=== PATIENT | female | born 1960 | race Caucasian/White ===

== ENCOUNTER → 2021-01-11 | Day surgery (SDC) | payer OTHER ==
[~2021-01-11] VITALS: Ht 157.5 cm; Wt 52.2 kg
[~2021-01-11] MED LIST: ABILIFY10 MG PO; ALENDRONATE SOD70 MG PO; BREO ELLIPTA 11 EACH PO; DESVENLAFAXINE50 M3 PO; DICLOFENAC SODI75 MG PO; DOXYCYCLINE HY100 MG PO; DOXYCYCLINE MO100 MG PO; FLONASE ALLER15.8 ML; FLUTICASONE PRO16 GM; LISINOPRIL-HCT1 EACH PO; LOPRESSOR25 MG PO; MAG-OXIDE 400M400 MG PO; NORCO 5-325 TA1 EACH PO; PERCOCET 5-3251 EACH PO; ULTRAM50 MG PO; VENTOLIN HFA IN18 GM INH; VITAMIN D31000 UNIT PO; ZOFRAN8 MG PO; ZYRTEC10 MG PO
== END | disposition home or self-care (01) ==
LOC: FAS 10:30
DX: D12.2 Benign neoplasm of ascending colon (principal); D12.0 Benign neoplasm of cecum; F41.9 Anxiety disorder, unspecified; F32.9 Major depressive disorder, single episode, unspecified; J44.9 Chronic obstructive pulmonary disease, unspecified; F17.210 Nicotine dependence, cigarettes, uncomplicated; I10 Essential (primary) hypertension
CPT/HCPCS: 88305; J1610; J2250; J2704; J7120